=== PATIENT | female | born 1980 | race Caucasian/White ===

== ENCOUNTER → 2016-10-23 | Outpatient (CLI) | payer OTHER ==
[~2016-10-23] MED LIST: PRINIVIL10 MG PO
== END | disposition short-term general hospital (02) ==
LOC: CLSURG 07:41
DX: N60.01 Solitary cyst of right breast (principal)

== ENCOUNTER 2016-10-30 08:43 | Day surgery (SDC) | payer OTHER ==
[~2016-10-30] VITALS: Ht 160 cm; Wt 143.8 kg
== END 2016-10-30 12:10 | disposition short-term general hospital (02) ==
LOC: SURGOP 08:43
PROC: 0HBT0ZZ Excision of Right Breast, Open Approach (ICD-10-PCS; principal; 2016-10-30)
DX: N60.11 Diffuse cystic mastopathy of right breast (principal); N64.1 Fat necrosis of breast; N61.1 Abscess of the breast and nipple
CPT/HCPCS: J0131; J1885; J2250; J3010

== ENCOUNTER → 2016-11-06 | Outpatient (CLI) | payer OTHER | END | disposition short-term general hospital (02) | LOC: CLSURG 10:07 | DX: Z48.817 Encounter for surgical aftercare following surgery on the skin and subcutaneous tissue (principal); Z98.890 Other specified postprocedural states; Z87.898 Personal history of other specified conditions ==

== ENCOUNTER → 2016-11-20 | Outpatient (CLI) | payer OTHER | END | disposition short-term general hospital (02) | LOC: CLSURG 11-13 15:12 | DX: Z48.817 Encounter for surgical aftercare following surgery on the skin and subcutaneous tissue (principal); Z87.898 Personal history of other specified conditions ==

== ENCOUNTER → 2016-12-04 | Outpatient (CLI) | payer OTHER | END | disposition short-term general hospital (02) | LOC: CLSURG 11:13 | DX: S21.001D Unspecified open wound of right breast, subsequent encounter (principal) ==